=== PATIENT | male | born 1970 | race African-American/Black ===

== ENCOUNTER 2020-11-03 18:40 | Emergency (ER) | payer OTHER ==
[~2020-11-03] VITALS: Ht 177.8 cm; Wt 81.6 kg
[2020-11-03 18:51] VITALS: BP 139/106
--- NOTE | 2020-11-03 18:59 | NUR ---
EKG DONE AND EVALUATED BY DR GAITAN TO [facility] TO WAIT FOR ER BED
--- NOTE | 2020-11-03 20:03 | NUR ---
OPEN BED NOW AVAILABLE. CALLED PATIENT TO BE SEEN BY MD, NOT IN WAITING ROOM. CALLED NUMBER ON FILE, NO ANSWER.
--- NOTE | 2020-11-03 20:36 | NUR ---
OPEN BED NOW AVAILABLE. CALLED PATIENT TO BE SEEN BY MD 2nd attempt, NOT IN WAITING ROOM. CALLED NUMBER ON FILE, NO ANSWER.
== END 2020-11-03 20:39 | disposition left against medical advice (07) ==
LOC: EDBD 18:40 → ER 18:50
DX: Z53.21 Procedure and treatment not carried out due to patient leaving prior to being seen by health care provider (principal); R07.89 Other chest pain; K21.9 Gastro-esophageal reflux disease without esophagitis

== ENCOUNTER 2020-11-03 22:58 | Emergency (ER) | payer OTHER ==
[~2020-11-03] VITALS: Ht 177.8 cm; Wt 72.6 kg
[2020-11-03 23:11] VITALS: BP 152/98
--- NOTE | 2020-11-03 23:50 | NUR ---
lab with pt for blood draw.
[2020-11-03 23:52] LABS: BASOPHILS # (AUTO) 0.1 /CMM (0.0-0.2); EOSINOPHILS % (AUTO) 2.4 % (0.0-6.0); HEMATOCRIT 44 % (39-51); HEMOGLOBIN 14.2 g/dL (13.5-17.5); LYMPHOCYTES # (AUTO) 0.5 /CMM (0.8-4.8); LYMPHOCYTES % (AUTO) 6.9 % (20.0-44.0); MEAN CORPUSCULAR HGB CONC 32 g/dl (31.0-36.0); MEAN CORPUSCULAR VOLUME 93 fL (80-96); MONOCYTES # (AUTO) 0.3 /CMM (0.1-1.30); MONOCYTES % (AUTO) 3.6 % (2.0-12.0); NEUTROPHILS # (AUTO) 6.1 /CMM (1.8-8.9); NEUTROPHILS % (AUTO) 86.1 % (43.0-81.0); PLATELET COUNT (AUTO) 197 /CMM (150-450); RED BLOOD CELL COUNT(AUTO) 4.75 MIL/uL (4.5-6.0); WHITE BLOOD COUNT (AUTO) 7.1 K/uL (4.3-11.0)
[2020-11-03 23:57] LABS: CALCIUM, SERUM 8.8 mg/dL (8.5-10.1); CARBON DIOXIDE 28 mmol/L (21-32); CHLORIDE 98 mmol/L (98-107); CREATININE 1.3 mg/dL (0.6-1.3); GLUCOSE 90 mg/dL (74-106); POTASSIUM 3.9 mmol/L (3.5-5.1); SODIUM SERUM 138 mmol/L (136-145); UREA NITROGEN, BLOOD 19 mg/dL (7-18)
--- NOTE | 2020-11-04 00:01 | NUR ---
RADIOLOGY WITH PT FOR CXR
== END 2020-11-04 00:51 | disposition home or self-care (01) ==
LOC: ER 23:01
DX: R07.89 Other chest pain (principal); K21.9 Gastro-esophageal reflux disease without esophagitis; Z60.2 Problems related to living alone
CPT/HCPCS: 36415; 71045-TC; 80048-TC; 84484-TC; 85025-TC